=== PATIENT | female | born 1980 | race Caucasian/White ===

== ENCOUNTER 2019-03-26 22:43 | Emergency (ER) | payer BC, MEDICAID ==
[2019-03-26] MEDS ORDERED: PROPARACAINE HCL OPTH 15ML BTL OPTH ONE (22:54)
--- NOTE | 2019-03-26 22:57 | Emergency Department Record ---
History of Present Illness - General Stated complaint: RT EYE IRRATATION Time Seen by Provider: 03/26/19 22:51 Source: Patient Mode of Arrival: Ambulatory Limitations: No limitations - History of Present Illness Initial comments: 38 yo female presents to ED for evaluation of irritation and watering to the right eye that began earlier this evening. Patient reports that she was at work at her desk this evening, is concerned that she may have scratched her right eye or something may have flown into the eye resulting in tearing, irritation. 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 chief complaint: Eye pain, Eye redness Onset/Timin -: Hour(s) Onset Description: Gradual Location: Right eye Place: Work If Injury: Other (Unsure) Eye Symptoms: Burning, Foreign body sensation, Photophobia, Redness Severity: Moderate If Pain, Quality: Aching Consistency: Constant Context: Injury Associated Symptoms: None Treatments Prior to Arrival: None Review of Systems Constitutional: Denies: Chills, Fever, Malaise, Night sweats Eyes: Reports: Eye discharge, Eye pain, Photophobia. Denies: Vision change ENT: Denies: Congestion, Ear pain, Epistaxis Respiratory: Denies: Cough, Dyspnea Cardiovascular: Denies: Chest pain, Dyspnea on exertion Endocrine: Denies: Fatigue, Heat or cold intolerance Gastrointestinal: Denies: Abdominal pain, Nausea, Vomiting Genitourinary: Denies: Incontinence, Retention Musculoskeletal: Denies: Arthralgia, Back pain Skin: Denies: Bruising, Change in color Neurological: Denies: Abnormal gait, Confusion, Headache, Seizure Psychiatric: Denies: Anxiety Hematological/Lymphatic: Denies: Anemia, Blood Clots Physical Exam - General General Appearance: Alert, Oriented x3, Cooperative Limitations: No limitations - Head Head exam: Atraumatic, Normocephalic, Normal inspection Head exam detail: negative: Abrasion, Contusion, Orourke's sign, General tenderness, Hematoma, Laceration - Eye Eye exam: Conjunctival injection, Other (Injected sclerat to the right eye on examination). negative: Periorbital swelling, Periorbital tenderness, Scleral icterus - ENT Ear exam: negative: Auricular hematoma, Auricular trauma Nasal Exam: negative: Active bleeding, Discharge, Dried blood, Foreign body Mouth exam: negative: Drooling, Laceration, Muffled voice, Tongue elevation - Neck Neck exam: Normal inspection. negative: Meningismus, Tenderness - Respiratory Respiratory exam: Normal lung sounds bilaterally. negative: Rales, Respiratory distress, Rhonchi, Stridor - Cardiovascular Cardiovascular Exam: Regular rate, Normal rhythm, Normal heart sounds - GI/Abdominal GI/Abdominal exam: Soft. negative: Rebound, Rigid, Tenderness - Rectal Rectal exam: Deferred - exam: Deferred - Extremities Extremities exam: Normal inspection. negative: Pedal edema, Tenderness - Back Back exam: Denies: CVA tenderness (R), CVA tenderness (L) - Neurological Neurological exam: Alert, Normal gait, Oriented X3 - Psychiatric Psychiatric exam: Normal affect, Normal mood - Skin Skin exam: Normal color. negative: Abrasion Type of lesion: negative: abrasion Course Vital Signs 03/26/19 22:49 Temperature 97.9 F Pulse Rate [ 95 H Pulse Ox Probe] Respiratory 20 Rate Blood Pressure 163/101 [Left Arm] Pulse Ox 100 - Reevaluation(s) Reevaluation #1: 03/26/19 23:05 Patient was seen and examined. No corneal abrasion noted on examination. No FB present on examination. No FB identified on lid eversion. Will prescribe Gentamycin eye drops for possible irritation with referral to Dr. Low in 1-3 days as directed. Disposition Disposition: Discharge Clinical Impression: Conjunctivitis Qualifiers: Conjunctivitis type: acute Acute conjunctivitis type: unspecified Laterality: right Qualified Code(s): H10.31 - Unspecified acute conjunctivitis, right eye Disposition: Home, Self-Care Condition: (2) Stable Instructions: Conjunctivitis (ED) Additional Instructions: Return to ED if your symptoms worsen or if you have any concerns. Gentamycin eye drops as directed. Follow-up with Dr. Low in 1-3 days as directed. Referrals: Tre Low [MEDICAL DOCTOR] - Time of Disposition: 23:04 Quality - Quality Measures Quality Measures: N/A - Blood Pressure Screening Does Patient Have Any of the Following: No Blood Pressure Classification: Hypertensive Reading Systolic Measurement: 163 Diastolic Measurement: 101 Screening for High Blood Pressure: < First Hypertensive BP, F/U Documented > [[id number]] First Hypertensive Follow-up Interventions: Referral to alternative/primary care provider.
[2019-03-26] MEDS ORDERED: GENTAMICIN SULFATE 0.3% OPTH 5 ML BTL OPTH SCH (23:15)
== END 2019-03-26 23:27 | disposition home or self-care (01) ==
LOC: ER 22:43
DX: H10.31 Unspecified acute conjunctivitis, right eye (principal)
CPT/HCPCS: 99283